=== PATIENT | female | born 1960 | race Caucasian/White ===

== ENCOUNTER → 2018-12-05 | Outpatient (CLI) | payer OTHER ==
--- NOTE | 2018-12-05 17:57 | RAD ---
EXAM: AP view both knees, lateral and tangential patellar view left knee DATE: 12/05/2018 12:00 AM INDICATION: Left knee pain COMPARISON: No Prior FINDINGS: Left knee: No evidence of acute fracture or dislocation. No left knee joint effusion. Neutral patellar tracking. Decreased bone mineral density. Joint spaces are preserved without significant degenerative/proliferative change. Single AP view right knee demonstrates severe right knee joint osteophytes arthritis with medial compartment joint space effacement and associated osteophytes. No evidence of acute fracture or dislocation. IMPRESSION: 1. No acute bone or joint abnormality of the left knee. No significant left knee degenerative changes are seen. 2. Severe right knee joint osteoarthritis. Electronically signed by: Yazan Vasquez MD (12/05/2018 5:53 PM) [id number]
== END | disposition home or self-care (01) ==
LOC: EDBD → PMG 14:42
PROVIDERS: ATTEND Orthopaedic Surgery
DX: M17.11 Unilateral primary osteoarthritis, right knee (principal); M25.761 Osteophyte, right knee; M25.562 Pain in left knee
CPT/HCPCS: 73560; 73565

== ENCOUNTER → 2019-12-11 | Outpatient (CLI) | payer OTHER ==
--- NOTE | 2019-12-11 15:06 | RAD ---
EXAMINATION: KNEE BILAT 3V CLINICAL HISTORY: Bilateral knee pain TECHNIQUE: KNEE BILAT 3V Number of images/views: 6 COMPARISON: 12/05/2018 FINDINGS: Marked narrowing in the right knee medial compartment with [id number] contact. Moderate narrowing in the left knee medial compartment. Mild patellofemoral compartment narrowing bilaterally. Bilateral tricompartmental small marginal osteophytes. No acute fracture. No significant joint effusion. IMPRESSION: Degenerative changes greatest in the bilateral medial compartments, advanced on the right. Electronically signed by: Luis Enrique Edward DO (12/11/2019 3:03 PM) [id number]
== END | disposition home or self-care (01) ==
LOC: DXRAD 13:13
PROVIDERS: ATTEND Orthopaedic Surgery
DX: M17.0 Bilateral primary osteoarthritis of knee (principal); M25.762 Osteophyte, left knee; M25.761 Osteophyte, right knee
CPT/HCPCS: 73562

== ENCOUNTER 2020-03-27 21:01 | Emergency (ER) | payer OTHER ==
[~2020-03-27] VITALS: Ht 162.6 cm; Wt 95.8 kg
--- NOTE | 2020-03-27 21:06 | PHYS DOC ---
Past History Smoking: Cigarettes Alcohol Use: None Drug Use: Cocaine, Heroin, Marijuana Adult General Chief Complaint Chief Complaint: COUGH HPI HPI Patient is a 59-year-old female who presents for URI-like symptoms and chest tightness. Reports onset of symptoms was earlier this morning without any known inciting event. Nothing known makes better or worse. Patient reports rhinorrhea, nasal congestion, postnasal drip in addition to "blisters in my mouth ", generalized nausea, nonbloody nonbilious emesis and diarrhea. She also reports development of chest "congestion" with that is substernal, does not radiate and is 5/10 in severity. She is scheduled she is covered in outpatient setting with [facility] cardiology group and is scheduled for outpatient Holter monitoring and stress test this upcoming Sunday. Patient has history of alcohol dependence and admits ongoing heroin use stating " I only use it for my knee pain, if I did not have knee pain I would not use it otherwise". Reports last use was this morning. Patient unsure if her chest tightness started developing after heroin use or not. She has no history of provocative cardiac testing, no significant family medical history of cardiac disease Review of Systems Review of Systems Fourteen body systems of review of systems have been reviewed. See HPI for pertinent positives and negative responses, other aguero all other systems are negative, non-pertinent or non-contributory Physical Exam Physical Exam General: Appears well, non toxic, and comfortable Skin: Warm, dry. Normal for ethnicity. HEENT: Atraumatic. PERRLA. Rhinorrhea and congestion. Nasal turbinates boggy b/l. Moist mucous membranes with postnasal drip present. Uvula midline. Maintaining secretions. No phonation changes. Benign appearing blisters on surface of tongue no concern for HIV or other immunocompromising conditions. Poor dentition Neck: Trachea midline. Normal ROM. No stridor. Respiratory: Normal WOB. CTAB w/o w/r/r. No tachypnea. Cardiovascular: Regular rate and rhythm. Normal peripheral perfusion. Abdomen: Soft. Non tender. No distension. Back: Normal ROM. Musculoskeletal: No swelling or deformity. Unremarkable gait Neuro: Alert and oriented x 4. MAEE. Lymph: No cervical LAD. Psych: Anxious affect and mood. Current Patient Data Vital Signs Vital Signs Date Time Temp Pulse Resp B/P (MAP) Pulse Ox O2 Delivery O2 Flow Rate FiO2 1/2/21 21:10 98.4 86 20 119/70 (86) 98 Room Air Lab Results Laboratory Tests Test 03/27/20 22:20 White Blood Count 10.1 x10^3/uL Red Blood Count 3.55 x10^6/uL Hemoglobin 10.4 g/dL Hematocrit 30.8 % Mean Corpuscular Volume 87 fL Mean Corpuscular Hemoglobin 29 pg Mean Corpuscular Hemoglobin Concent 34 g/dL Red Cell Distribution Width 13.7 % Platelet Count 448 x10^3/uL Neutrophils (%) (Auto) 69 % Lymphocytes (%) (Auto) 15 % Monocytes (%) (Auto) 9 % Eosinophils (%) (Auto) 7 % Basophils (%) (Auto) 1 % Neutrophils # (Auto) 7.0 x10^3uL Lymphocytes # (Auto) 1.5 x10^3/uL Monocytes # (Auto) 0.9 x10^3/uL Eosinophils # (Auto) 0.7 x10^3/uL Basophils # (Auto) 0.1 x10^3/uL Sodium Level 121 mmol/L Potassium Level 3.4 mmol/L Chloride Level 85 mmol/L Carbon Dioxide Level 25 mmol/L Anion Gap 11 Blood Urea Nitrogen 13 mg/dL Creatinine 1.2 mg/dL Estimated GFR (Cockcroft-Gault) 45.8 BUN/Creatinine Ratio 11 Glucose Level 95 mg/dL Calcium Level 8.7 mg/dL Total Bilirubin 0.5 mg/dL Aspartate Amino Transf (AST/SGOT) 26 U/L Alanine Aminotransferase (ALT/SGPT) 27 U/L Alkaline Phosphatase 97 U/L Troponin I Quantitative 0.018 ng/mL Total Protein 6.9 g/dL Albumin 3.4 g/dL Albumin/Globulin Ratio 1.0 Current Medications Medications (Trade) Dose Ordered Sig/Tyler Route PRN Reason Start Time Stop Time Status Last Admin Dose Admin Acetaminophen (Tylenol) 650 mg 1X ONCE PO 03/27/20 22:00 03/27/20 22:01 DC 03/27/20 22:23 Ondansetron HCl (Zofran) 4 mg 1X ONCE IVP 03/27/20 22:30 03/27/20 22:31 DC 03/27/20 22:23 Famotidine (Pepcid) 20 mg 1X ONCE PO 03/27/20 23:30 03/27/20 23:31 DC 03/27/20 23:19 EKG EKG EKG ordered and interpreted by myself at 2129 hrs. as sinus rhythm at 79 bpm, prolonged QTC at 498 otherwise unremarkable intervals, left axis deviation, no STEMI Radiology/Procedures Radiology/Procedures Exam: Chest one view INDICATION: Chest tightness TECHNIQUE: Frontal view of the chest Comparisons: None FINDINGS: Heart is mildly enlarged. Pulmonary vessels are within normal limits. The lung and pleural spaces are clear. IMPRESSION: No acute pulmonary process. Electronically signed by: En Covarrubias MD (03/27/2020 10:56 PM) [facility] [] Heart Score HEART Score for Chest Pain: HEART Score for Chest Pain Response (Comments) Value History Moderately Suspicious 1 ECG Normal 0 Age >45 - < 65 1 Risk Factors 1 or 2 Risk Factors 1 Troponin < Normal Limit 0 Total 3 Risk Factors: Risk Factors: DM, Current or recent (<one month) smoker, HTN, HLP, family history of CAD, obesity. Risk Scores: Risk Factors: DM, Current or recent (<one month) smoker, HTN, HLP, family history of CAD, obesity. Course & Med Decision Making Course & Med Decision Making Patient evaluated fully. Discussed diagnoses of viral syndrome and fact that I could not exclude COVID-19 so COVID-19 testing was offered but refused. I also disclosed fact that patient had concerning risk factors for cardiac disease and recommended cardiac observation but she declined. In addition, I disclosed profound hyponatremia and recommended admission for further evaluation and treatment as indicated, she continued to refuse. Patient kept wanting something for pain for bilateral lower extremities for which I refused. Patient continuing to deny admission and voiced that she wanted to leave AGAINST MEDICAL ADVICE. I had an extensive discussion with the patient regarding the risks of leaving AMA including but not limited to , permanent disability, and worsening condition. Pt acknowledged the risks and agreed to take full responsibility. Pt was A&Ox4 and had full medical decision making capacity when they signed the AMA sheet. Risks and Recommendations: The risks of refusing recommended care that were disclosed and acknowledged by the patient include loss of current lifestyle, permanent mental impairment, and . The recommended medical care being refused has been discussed with the patient and is to stay for continued monitoring, workup, and possible treatment. Discharge Care: The patient understands they are welcome to return to the hospital at any time to receive the recommended care or any other care at any time, regardless of their ability to pay for such care. I advised patient follow-up with her primary care physician NASIMA to review ER visit today for which she left AMA Discharge instructions were provided to the patient. Dragon Disclaimer Dragon Disclaimer This electronic medical record was generated, in whole or in part, using a voice recognition dictation system. Departure Departure: Impression: Primary Impression: Left against medical advice Additional Impressions: Hyponatremia Viral syndrome Chest pain, unspecified Disposition: AMA/ELOPED/LWBS Condition: STABLE Referrals: KAROL GTZ DO (PCP) Additional Instructions: You have been evaluated in the Emergency Department today. You are refusing further testing, imaging, and further admission and choosing to leave against medical advice. You were advised of your risks of leaving and understand that permanent harm, or even , can occur from failing to follow the recommendations of the physician. Please follow-up with your primary care physician NASIMA to review your ER visit today Return to the Emergency Department immediately if you experience worsening or uncontrolled pain, persistent fevers, recurrent vomiting, blood in vomit, blood in stool, dark tarry stool, chest pain, shortness of breath, or for any other concerning symptoms. Problem Qualifiers MILAD NIEVES DO Mar 27, 2020 21:06
--- NOTE | 2020-03-27 21:28 | EKG ---
[address] [address] Test Date: 2020-03-27 Test Time: 21:19:53 Pat Name: LIONEL WESLEY Department: Room: Gender: F Tax Services Specialist: : 1960 Requested By: MILAD NIEVES Order Number: [id number] Reading MD: [place] Sol[place] Measurements Intervals [place] Rate: 79 P: 20 [place]: 176 QRS: -57 QRSD: 104 T: 72 QT: 428 QTc: 498 Interpretive Statements SINUS RHYTHM ABNORMAL LEFT AXIS DEVIATION LEFT ANTERIOR FASCICULAR BLOCK T ABNORMALITY IN HIGH LATERAL LEADS PROLONGED QT ABNORMAL ECG RI6.02 No previous ECG available for comparison Electronically Signed On 03-30-2020 13:54:35 SENIOR BUSINESS DEVELOPMENT ANALYST by [place]
[2020-03-27] MEDS ORDERED: ACETAMINOPHEN 325 MG TABLET PO ONE (22:00)
[2020-03-27] MEDS ORDERED: ONDANSETRON PF 4 MG/2 ML VIAL. IVP ONE (22:30)
[2020-03-27 22:53] LABS: BASO # 0.1 x10^3/uL (0.0-0.2); BASO % 1 % (0-3); EOS # 0.7 x10^3/uL (0.0-0.7); EOS % 7 % (0-3); HEMATOCRIT 30.8 % (36.0-47.0); HEMOGLOBIN 10.4 g/dL (12.0-15.5); LYMPH # 1.5 x10^3/uL (1.0-4.8); LYMPH % 15 % (24-48); MEAN CORPUSCULAR HEMOGLOBIN 29 pg (25-35); MEAN CORPUSCULAR HGB CONC 34 g/dL (31-37); MEAN CORPUSCULAR VOLUME 87 fL (79-100); MONO # 0.9 x10^3/uL (0.0-1.1); MONO % 9 % (0-9); NEUT % 69 % (31-73); PLATELET COUNT 448 x10^3/uL (140-400); RED BLOOD COUNT 3.55 x10^6/uL (3.50-5.40); RED CELL DISTRIBUTION WIDTH 13.7 % (11.5-14.5); WHITE BLOOD COUNT 10.1 x10^3/uL (4.0-11.0)
--- NOTE | 2020-03-27 22:59 | RAD ---
Exam: Chest one view INDICATION: Chest tightness TECHNIQUE: Frontal view of the chest Comparisons: None FINDINGS: Heart is mildly enlarged. Pulmonary vessels are within normal limits. The lung and pleural spaces are clear. IMPRESSION: No acute pulmonary process. Electronically signed by: En Covarrubias MD (03/27/2020 10:56 PM) OBIE
[2020-03-27 23:01] LABS: CALCIUM 8.7 mg/dL (8.5-10.1); CREATININE 1.2 mg/dL (0.6-1.0); GFR 45.8; POTASSIUM 3.4 mmol/L (3.5-5.1)
[2020-03-27 23:07] LABS: ALBUMIN 3.4 g/dL (3.4-5.0); TOTAL BILIRUBIN 0.5 mg/dL (0.2-1.0); TOTAL PROTEIN 6.9 g/dL (6.4-8.2)
[2020-03-27] MEDS ORDERED: FAMOTIDINE 20 MG TABLET PO ONE (23:30)
[2020-03-27 23:50] VITALS: BP 114/76
== END 2020-03-28 00:01 | disposition left against medical advice (07) ==
LOC: ER 21:01
DX: E87.1 Hypo-osmolality and hyponatremia (principal); B34.9 Viral infection, unspecified; R07.89 Other chest pain; R11.2 Nausea with vomiting, unspecified; R19.7 Diarrhea, unspecified; F17.210 Nicotine dependence, cigarettes, uncomplicated
CPT/HCPCS: 36415; 71045; 80053; 84484; 85025; 93005; 96374; 99285; J2405

== ENCOUNTER 2020-03-28 19:38 | Emergency (ER) | payer OTHER ==
[~2020-03-28] VITALS: Ht 162.6 cm; Wt 95.8 kg
[2020-03-28 19:46] VITALS: BP 128/56
[2020-03-28] MEDS ORDERED: IV NORMAL SALINE 1,000ML 1,000 ML IV ONE (20:00)
[2020-03-28] MEDS ORDERED: KETOROLAC 30 MG/ML VIAL. IVP ONE (20:00)
[2020-03-28 21:22] LABS: CALCIUM 8.9 mg/dL (8.5-10.1); CREATININE 1.2 mg/dL (0.6-1.0); GFR 45.8; POTASSIUM 3.4 mmol/L (3.5-5.1)
[2020-03-28] MEDS ORDERED: LIDOCAINE 2% VISCOUS 15 ML SOLUTION. SWSW ONE ×2 (21:30→22:30)
--- NOTE | 2020-03-28 21:56 | PHYS DOC ---
Past History Past Medical History: Anxiety, Arthritis, Asthma, Bronchitis, Depression, Diabetes, Other Additional Past Medical Histor: chronic rt knee pain (DANIEL FLOWERS UX CONSULTANT) Past Surgical History: Tonsillectomy, Other Additional Past Surgical Histo: TABx1; rt knee "cleanouts" x2; oral surgery (DANIEL FLOWERS APRN) Smoking: Cigarettes Alcohol Use: None Drug Use: Cocaine, Heroin, Marijuana (DANIEL FLOWERS APRN) Adult General Chief Complaint Chief Complaint: FACE PAIN HPI HPI Patient is a 59-year-old female presents emergency department complaining of face pain and mouth pain. Patient states she was here yesterday and did not get the a strong pain medications that she requires. And is here today says that she can receive some strong medic occasions for her face pain. Patient states that she developed blisters in her mouth several months ago. She cannot take the pain any longer. Patient states she was here yesterday and states they wanted to admit her for something or another but she did not get what she wanted so she left. Patient denies any other physical elements or physical pain. Pat ient does deny recent fever or chills, denies chest pain, denies shortness of breath, denies abdominal pain, denies vomiting, diarrhea, constipation. Patient denies any rashes to her skin. Patient denies any recent exposure to the COVID- 19 virus and does not wish to be checked today. (DANIEL FLOWERS UX CONSULTANT) Review of Systems Review of Systems 14 body systems of review of systems have been reviewed. See HPI for pertinent positives and negative responses, otherwise all other systems are negative, nonpertinent or noncontributory. (DANIEL FLOWERS UX CONSULTANT) Current Medications Current Medications Current Medications Medications (Trade) Dose Ordered Sig/Tyler Start Time Stop Time Status Last Admin Dose Admin Ketorolac Tromethamine (Toradol 30mg Vial) 30 mg 1X ONCE 03/28/20 20:00 03/28/20 20:01 DC 03/28/20 20:19 30 MG Lidocaine HCl (Viscous Lidocaine) 15 ml 1X ONCE 03/28/20 21:30 03/28/20 21:31 DC 03/28/20 21:16 15 ML Sodium Chloride 1,000 ml @ 1,000 mls/hr 1X ONCE 03/28/20 20:00 03/28/20 20:59 DC 03/28/20 20:00 1,000 MLS/HR (DANIEL FLOWERS APRN) Allergies Allergies Allergies Coded Allergies Type Severity Reaction Last Updated Verified No Known Drug Allergies 03/27/20 No (DANIEL FLOWERS APRN) Physical Exam Physical Exam Constitutional: Well developed, well nourished, no acute distress, non-toxic appearance. HENT: Normocephalic, atraumatic, bilateral external ears normal, oropharynx moist, no oral exudates, nose normal. Patient does not have teeth, oral gums and mucosal lining of mouth present with small open lesions measuring between 1 cm and 2 cm, erythematous, consistent with stomatitis. Eyes: PERRLA, EOMI, conjunctiva normal, no discharge. Neck: Normal range of motion, no tenderness, supple, no stridor. Cardiovascular:Heart rate regular rhythm, no murmur Lungs & Thorax: Bilateral breath sounds clear to auscultation Abdomen: Bowel sounds normal, soft, no tenderness, no masses, no pulsatile masses. Skin: Warm, dry, no erythema, no rash. Back: No tenderness, no CVA tenderness. Extremities: No tenderness, no cyanosis, no clubbing, ROM intact, no edema. Neurologic: Alert and oriented X 3, normal motor function, normal sensory function, no focal deficits noted. Psychologic: Affect normal, judgement normal, mood normal. (DANIEL FLOWERS APRN) Current Patient Data Vital Signs Vital Signs Date Time Temp Pulse Resp B/P (MAP) Pulse Ox O2 Delivery O2 Flow Rate FiO2 03/28/20 19:46 98.6 99 16 128/56 (80) 100 Room Air Lab Results Laboratory Tests Test 03/28/20 20:21 Sodium Level 120 mmol/L (136-145) L Potassium Level 3.4 mmol/L (3.5-5.1) L Chloride Level 85 mmol/L (98-107) L Carbon Dioxide Level 25 mmol/L (21-32) Anion Gap 10 (6-14) Blood Urea Nitrogen 11 mg/dL (7-20) Creatinine 1.2 mg/dL (0.6-1.0) H Estimated GFR (Cockcroft-Gault) 45.8 Glucose Level 92 mg/dL (70-99) Calcium Level 8.9 mg/dL (8.5-10.1) (DANIEL FLOWERS APRN) EKG EKG [] (DANIEL FLOWERS APRN) Radiology/Procedures Radiology/Procedures [] (DANIEL FLOWERS APRN) Heart Score Risk Factors: Risk Factors: DM, Current or recent (<one month) smoker, HTN, HLP, family history of CAD, obesity. Risk Scores: Risk Factors: DM, Current or recent (<one month) smoker, HTN, HLP, family history of CAD, obesity. (DANIEL FLOWERS APRN) Course & Med Decision Making Course & Med Decision Making Pertinent Labs and Imaging studies reviewed. (See chart for details) 59-year-old female presents emergency department demanding narcotic pain medications. Patient was here yesterday, chart reviewed, patient had a sodium of 121. Discussed with patient the severity of having a hyponatremia and need to redraw chemistry lab to confirm hyponatremia. Patient states that she would only let me draw blood if she was to get a Percocet or Rudy or morphine or Dilaudid. Discussed with patient that it would be inappropriate for me to give narcotic pain medication without first knowing what her sodium level was. Discussed with patient would start IV and draw the necessary serum lab to study sodium level, will give IV Toradol for pain. Also offered oral viscous lidocaine for oral stomatitis pain. Patient was agreeable to this. Patient reported pain relief with oral viscous lidocaine, however patient states that she still wants something more for pain other than Toradol. The patient's sodium level is 120. Discussed admission to patient for treatment of hyponatremia, patient states that she is going to leave the emergency department because no one is treating her severe pain. Discussed with patient need to admit for hyponatremia, will order more viscous lidocaine swish and spit. ED attending physician Dr. Nieves was alerted to patient wanted to leave AMA, Dr. Nieves discussed with patient risk versus benefits of leaving AMA, patient still elected to leave AGAINST MEDICAL ADVICE. Patient elected to leave AGAINST MEDICAL ADVICE, discussed with patient risks versus benefits of staying for hospital admission and treatment of hyponatremia versus leaving AGAINST MEDICAL ADVICE. Patient is of sound mind and body, alert and oriented x3, in my opinion able to make her own educated medical decisions. Patient signed AMA form, discharge instructions were printed, a prescription for Magic mouthwash was written, patient had left emergency department prior to receiving written discharge instructions and prescription. Impression: #1 left AGAINST MEDICAL ADVICE #2 hyponatremia #3 stomatitis and mucositis (DANIEL FLOWERS APRN) Course & Med Decision Making I oversaw on the above date of service of this patient and discussed the care with the DROP FORGE OPERATOR. I personally saw patient and repeated certain aspects of history and physical exam. I personally saw patient 24 hours ago and diagnosed patient with viral syndrome, she refused COVID-19 swab. I offered cardiac observation and admission for hyponatremia but she refused and left AGAINST MEDICAL ADVICE. Patient complaining of oral pain likely secondary to viral syndrome, requesting narcotics today which I declined. Work-up again finds hyponatremia, I again offered admission but patient with full capacity continued to decline. Patient aggravated that I would not give pain medication, I again offered admission but she declined. Risks and benefits of leaving AMA discussed, patient left AMA and left facility prior to receiving discharge paperwork (MILAD NIEVES DO) Dragon Disclaimer Dragon Disclaimer This electronic medical record was generated, in whole or in part, using a voice recognition dictation system. (DANIEL FLOWERS APRN) Departure Departure: Impression: Primary Impression: Left against medical advice Additional Impressions: Hyponatremia Stomatitis and mucositis Disposition: 07 AMA/ELOPED/LWBS Condition: STABLE Referrals: KAROL GTZ DO (PCP) Patient Instructions: Hyponatremia, Stomatitis Additional Instructions: We have offered you admission to the hospital related to your low sodium level, you have elected to leave AGAINST MEDICAL ADVICE. I have given you a prescription for Magic mouthwash please use as directed for your mouth pain. Please follow-up with your primary care physician soon for reevaluation. Please return to the emergency department for worsening symptoms or other concerns. Patient does not wish to proceed with medical care recommended by JULIO Baker DROP FORGE OPERATOR-C. Patient given information related to possible complications, up to and including , which could occur as a result of leaving the hospital at this time. Patient verbalizes understanding of risks involved due to leaving against medical advice. Patient has singned AMA form. Problem Qualifiers DANIEL FLOWERS APRN Mar 28, 2020 21:56 MILAD NIEVES DO Mar 30, 2020 13:18
== END 2020-03-28 22:08 | disposition left against medical advice (07) ==
LOC: ER 19:38
DX: E87.1 Hypo-osmolality and hyponatremia (principal); K12.1 Other forms of stomatitis; K12.30 Oral mucositis (ulcerative), unspecified; F41.9 Anxiety disorder, unspecified; M19.90 Unspecified osteoarthritis, unspecified site; J45.909 Unspecified asthma, uncomplicated; E11.9 Type 2 diabetes mellitus without complications; F17.210 Nicotine dependence, cigarettes, uncomplicated
CPT/HCPCS: 36415; 80048; 96361; 96374; 99283; J1885; J7030